=== PATIENT | male | born 1960 | race African-American/Black ===

== ENCOUNTER 2017-09-19 02:42 | Emergency (ER) | payer BC, OTHER ==
[~2017-09-19] VITALS: Ht 172.7 cm; Wt 145.1 kg
[~2017-09-19 02:42] MED LIST: BP MEDICATION PO; INSULIN REGULAR; LANTUS100 U/ML SC; MEDROL DOSEPAK4 MG PO; PREDNISONE20 M1 PO; PROAIR HFA8.5 GM INH; ZITHROMAX250 MG PO
[2017-09-19 03:53] LABS: BILIRUBIN NEGATIVE (NEGATIVE); BLOOD 1+ (NEGATIVE); CLARITY CLEAR (CLEAR); COLOR YELLOW (YELLOW); GLUCOSE 2+ (NEGATIVE); KETONE NEGATIVE (NEGATIVE); LEUKO ESTERASE NEGATIVE (NEGATIVE); NITRITE NEGATIVE (NEGATIVE); UROBILINOGEN 0.2 E.U./dl (0.2-1.0)
[2017-09-19] MEDS ORDERED: ZITHROMAX250 MG PO (04:40)
[2017-09-19] MEDS ORDERED: PREDNISONE20 M1 PO (04:40)
[2017-09-19] MEDS ORDERED: PROAIR HFA8.5 GM INH (04:51)
[2017-09-19] MEDS ORDERED: HYDROCHLOROTHIA25 M1 PO (04:51)
[2017-09-19] MEDS ORDERED: METOPROLOL TART50 M1 PO (04:51)
== END 2017-09-19 08:25 | disposition home or self-care (01) ==
LOC: ED 02:42
PROVIDERS: Emergency Medicine Emergency Medical Services
DX: J20.9 Acute bronchitis, unspecified (principal); I12.9 Hypertensive chronic kidney disease with stage 1 through stage 4 chronic kidney disease, or unspecified chronic kidney disease; E11.22 Type 2 diabetes mellitus with diabetic chronic kidney disease; N18.9 Chronic kidney disease, unspecified; Z79.4 Long term (current) use of insulin; Z79.899 Other long term (current) drug therapy

== ENCOUNTER 2018-12-22 23:57 | Inpatient (IN) | payer BC, OTHER ==
[~2018-12-22] VITALS: Ht 172.7 cm; Wt 138.1 kg
[2018-12-22 23:57] VITALS: BP 165/106
[~2018-12-22 23:57] MED LIST changes: +HYDROCHLOROTHIA25 M1 PO; +METOPROLOL TART50 M1 PO
[2018-12-23 01:00] LABS: BASO % 0.5 % (0.0-1.0); EOS # 0.1 10*3/uL (0.0-0.4); EOS % 1.4 % (1.0-4.0); HEMATOCRIT 46.6 % (42.0-52.0); HEMOGLOBIN 15.7 g/dl (14.0-18.0); LYMPH # 1.8 10*3/uL (1.3-4.4); LYMPH % 32.3 % (27.0-41.0); MEAN CELL VOLUME 83.2 fl (80.0-94.0); MEAN CORPUSCULAR HGB CONC 33.7 g/dl (33.0-37.0); MEAN PLATELET VOLUME 12.1 fl (9.6-12.3); MONO # 0.6 10*3/uL (0.1-1.0); MONO % 10.2 % (3.0-9.0); NEUT # 3.2 10*3/uL (2.3-7.9); NEUT % 55.4 % (47.0-73.0); PLATELET COUNT AUTOMATED 228 10*3/uL (130-400); RED CELL DISTRI WIDTH 13.8 % (0-14.5); WHITE BLOOD COUNT 5.7 10*3/uL (4.8-10.8)
[2018-12-23 01:17] LABS: ALBUMIN 3.1 gm/dl (3.1-4.5); CREATININE 1.51 mg/dL (0.70-1.30); POTASSIUM 4.5 mmol/L (3.5-5.1); TOTAL PROTEIN 7.8 gm/dL (6.4-8.2)
[2018-12-23 01:32] LABS: BILIRUBIN NEGATIVE (NEGATIVE); BLOOD NEGATIVE (NEGATIVE); CLARITY CLEAR (CLEAR); COLOR YELLOW (YELLOW); GLUCOSE 3+ (NEGATIVE); KETONE 1+ (NEGATIVE); LEUKO ESTERASE NEGATIVE (NEGATIVE); NITRITE NEGATIVE (NEGATIVE); PH 5.5 (5.0-9.0); SPECIFIC GRAVITY <= 1.005 (1.005-1.030); UROBILINOGEN 0.2 E.U./dl (0.2-1.0)
[2018-12-23 02:01] LABS: RBC 0-2 rbc/hpf (0-2)
[2018-12-23 02:52] LABS: ABG BASE EXCESS -0.5 mmol/L (-2.0-2.0); ABG HCO3 24.1 mmol/l (22-26); ARTERIAL BLOOD GAS PCO2 41.5 mmHg (35-45); ARTERIAL BLOOD GAS PH 7.382 (7.35-7.45); ARTERIAL BLOOD GAS PO2 78.2 mmHg (80-90)
[2018-12-23 04:00] VITALS: BP 142/92
[2018-12-23 06:46] LABS: ALBUMIN 2.8 gm/dl (3.1-4.5); ALKALINE PHOSPHATASE 89 U/L (45-117); BUN 23 mg/dl (7-24); CHLORIDE 102 mmol/L (98-107); CHOLESTEROL 207 mg/dL (<200); CREATININE 1.28 mg/dL (0.70-1.30); FREE T4 1.09 ng/dl (0.76-1.46); HDL CHOLESTEROL 28 mg/dl (40-60); POTASSIUM 3.7 mmol/L (3.5-5.1); SGOT/AST 22 IU/L (3-35); SGPT/ALT 43 U/L (12-78); SODIUM 138 mmol/L (136-145); TOTAL PROTEIN 6.8 gm/dL (6.4-8.2); TRIGLYCERIDES 532 mg/dl (<150)
[2018-12-23 12:00] VITALS: BP 135/85
[2018-12-23] MEDS ORDERED: NORVASC10 MG PO (12:17)
[2018-12-23] MEDS ORDERED: Lantus SC ×3 (13:08→14:16)
[2018-12-23] MEDS ORDERED: Humalog SQ ×3 (13:08→14:16)
[2018-12-23] MEDS ORDERED: ATORVASTATIN CA20 M1 PO ×2 (13:08→13:25)
[2018-12-23] MEDS ORDERED: Vitamin D PO ×2 (13:08→14:16)
[2018-12-23] MEDS ORDERED: 50% DEXTRO25 GM/50 M SL (13:08)
[2018-12-23] MEDS ORDERED: METOPROLOL TART50 M1 PO (13:25)
[2018-12-23] MEDS ORDERED: PRINIVIL10 MG PO (13:25)
== END 2018-12-23 15:49 | disposition home or self-care (01) | DRG 682 ==
LOC: ED 23:57 → EDHOLD 12-23 02:56 → 4E 12-23 03:12
PROVIDERS: Emergency Medicine; Family Medicine; ADMIT Emergency Medicine
DX: N17.0 Acute kidney failure with tubular necrosis (principal); E10.10 Type 1 diabetes mellitus with ketoacidosis without coma; E87.1 Hypo-osmolality and hyponatremia; E87.8 Other disorders of electrolyte and fluid balance, not elsewhere classified; E86.0 Dehydration; I10 Essential (primary) hypertension; E78.5 Hyperlipidemia, unspecified; J45.909 Unspecified asthma, uncomplicated; F17.200 Nicotine dependence, unspecified, uncomplicated; Z91.14 Patient's other noncompliance with medication regimen; Z79.51 Long term (current) use of inhaled steroids; Z79.899 Other long term (current) drug therapy

== ENCOUNTER → 2019-01-10 | Outpatient (CLI) | payer BC, OTHER ==
[~2019-01-10] MED LIST changes: +50% DEXTRO25 GM/50 M SL; +AMLODIPINE BES2.5 MG PO; +ATORVASTATIN CA20 M1 PO; +Humalog SQ; +LISINOPRIL10 M1 PO; +Lantus SC; +NORVASC10 MG PO; +PRINIVIL10 MG PO; +TOUJEO SOL300 UNIT/1 SQ; +VITAMIN D32000 UNI1 PO; +Vitamin D PO
== END | disposition home or self-care (01) ==
LOC: RESCLI 13:20
DX: I10 Essential (primary) hypertension (principal); E11.9 Type 2 diabetes mellitus without complications; E78.5 Hyperlipidemia, unspecified; E55.9 Vitamin D deficiency, unspecified; G25.81 Restless legs syndrome; Z79.4 Long term (current) use of insulin; Z76.89 Persons encountering health services in other specified circumstances; Z79.899 Other long term (current) drug therapy; Z88.8 Allergy status to other drugs, medicaments and biological substances

== ENCOUNTER 2019-05-24 16:16 | Inpatient (IN) | payer BC, OTHER ==
[~2019-05-24] VITALS: Ht 172.7 cm; Wt 129.0 kg
--- NOTE | ~2019-05-24 | EKG ---
[place], [place] ELECTROCARDIOGRAM REPORT NAME: ALEX MENENDEZ UNIT #: [id number] ROOM: [facility] DOCTOR: MAGDY DRAFT REPORT BIRTHDATE: [birth year] [facility] Test Date: 2019-05-24 Test Time: 16:49:20 Pat Name: ALEX MENENDEZ Department: ER Room: [facility] Gender: M Operations And Maintenance Manager: : 1960 Requested By: SATYA CASTAÑEDA Order Number: [id number] Reading MD: Jimmy Szymanski MD Measurements Intervals [place] Rate: 94 P: 30 [place]: 178 QRS: -74 QRSD: 105 T: 50 QT: 384 QTc: 481 Interpretive Statements Sinus rhythm Left atrial enlargement Left anterior fascicular block Left ventricular hypertrophy Anterior infarct, old Electronically Signed On 05-25-2019 9:12:03 PDT by Jimmy Szymanski MD CM:EKGRPT:ELECTROCARDIOGRAM REPORT [id number] SATYA CURRAN DRAFT REPORT SATYA CASTAÑEDA MD
[~2019-05-24 16:16] MED LIST changes: -AMLODIPINE BES2.5 MG PO; -LISINOPRIL10 M1 PO; -TOUJEO SOL300 UNIT/1 SQ; -VITAMIN D32000 UNI1 PO
[2019-05-24 16:18] VITALS: BP 150/100
[2019-05-24 16:52] LABS: BASO % 0.5 % (0.0-1.0); EOS # 0.1 10*3/uL (0.0-0.4); EOS % 0.9 % (1.0-4.0); HEMATOCRIT 46.2 % (42.0-52.0); HEMOGLOBIN 14.9 g/dl (14.0-18.0); LYMPH # 1.6 10*3/uL (1.3-4.4); LYMPH % 24.7 % (27.0-41.0); MEAN CELL VOLUME 86.7 fl (80.0-94.0); MEAN CORPUSCULAR HGB CONC 32.3 g/dl (33.0-37.0); MEAN PLATELET VOLUME 13.6 fl (9.6-12.3); MONO # 0.6 10*3/uL (0.1-1.0); NEUT # 4.3 10*3/uL (2.3-7.9); NEUT % 64.6 % (47.0-73.0); PLATELET COUNT AUTOMATED 310 10*3/uL (130-400); RED BLOOD COUNT 5.33 10*6/uL (4.50-5.90); RED CELL DISTRI WIDTH 14.3 % (0-14.5); WHITE BLOOD COUNT 6.6 10*3/uL (4.8-10.8)
[2019-05-24 17:45] VITALS: BP 138/88
--- NOTE | 2019-05-24 17:46 | NUR ---
PT STATES HE WENT TO [facility] [employer] [facility] AND HAD VANILLA SUNDAE BEFORE COMING TO THE ER.
[2019-05-24 17:49] LABS: BILIRUBIN NEGATIVE (NEGATIVE); BLOOD NEGATIVE (NEGATIVE); CLARITY CLEAR (CLEAR); COLOR YELLOW (YELLOW); GLUCOSE 3+ (NEGATIVE); KETONE 3+ (NEGATIVE); LEUKO ESTERASE NEGATIVE (NEGATIVE); NITRITE NEGATIVE (NEGATIVE); PH 5.5 (5.0-9.0); UROBILINOGEN 0.2 E.U./dl (0.2-1.0)
[2019-05-24 17:50] LABS: ACT PARTIAL THROMBO TIME 25.9 SECONDS (20.0-32.1); INTERNATIONAL NORM RATIO 0.9 (2.0-3.5)
[2019-05-24 17:54] LABS: ALBUMIN 2.9 gm/dl (3.1-4.5); ALKALINE PHOSPHATASE 95 U/L (45-117); BUN 35 mg/dl (7-24); CHLORIDE 99 mmol/L (98-107); POTASSIUM 5.2 mmol/L (3.5-5.1); SGOT/AST 13 IU/L (3-35); SGPT/ALT 34 U/L (12-78); SODIUM 136 mmol/L (136-145)
[2019-05-24 17:56] LABS: TROPONIN I < 0.015 ng/ml (<0.045)
[2019-05-24 17:58] LABS: BACTERIA TRACE; EPITHELIAL CELLS 0-2; WBC 0-2 wbc/hpf (0-5)
[2019-05-24 18:12] VITALS: BP 148/85
[2019-05-24 18:30] VITALS: BP 161/97
--- NOTE | 2019-05-24 18:30 | NUR ---
A 58, admitted to [facility]U, under the services of CINDY Rodney DO with a diagnosis of LINDA, DKA, HYPERKALEMIA. Chief complaint is weakness and frequent urination after not taking Lantus for several days. Patient arrived via stretcher from ER. Monitor applied. Initial assessment completed. Vital signs taken and recorded. CINDY RODNEY DO notified of admission to the unit. Orders received. See assessment for past medical history, medications and allergies. Patient and/or family oriented to unit. [facility] visitation policy reviewed. Clothing/patient valuable form completed. BASIL HINES
--- NOTE | 2019-05-24 18:55 | NUR ---
PATIENT'S GLUCOSE CHECK SHOWED >600 CRITICAL HI ON THE GLUCOSE MONITOR. STAT GLUCOSE REFLEX ORDERED.
[2019-05-24] MEDS ORDERED: TOUJEO SOL300 UNIT/1 SQ (18:56)
[2019-05-24 20:00] VITALS: BP 155/88
--- NOTE | 2019-05-24 22:00 | NUR ---
PATIENT VERY DEMANDING ON WHERE THE LAB CAN DO DRAWS ON HIM. MULTIPLE TRIES ATTEMPTED BY STAFF. PATIENT THEN STATED THAT WAS THE LAST TIME. EXPLAINED TO PATIENT HE WOULD HAVE LABS THROUGHOUT THE NIGHT.
[2019-05-24 22:37] LABS: CREATININE 1.67 mg/dL (0.70-1.30); POTASSIUM 5.6 mmol/L (3.5-5.1); TOTAL PROTEIN 7.4 gm/dL (6.4-8.2)
[2019-05-24 23:31] LABS: ABG BASE EXCESS -8.7 mmol/L (-2.0-2.0); ABG HCO3 16.7 mmol/l (22-26); ABG O2 SATURATION 61.7 % (95-97); ARTERIAL BLOOD GAS PH 7.297 (7.35-7.45)
[2019-05-24 23:32] LABS: ARTERIAL BLOOD GAS PO2 33.9 mmHg (80-90)
[2019-05-25] VITALS: BP 137/84
--- NOTE | 2019-05-25 00:30 | NUR ---
PATIENT ONLY ALLOWING LAB TO DO FINGER STICKS ON HIM.
[2019-05-25 00:44] LABS: ALBUMIN 3.1 gm/dl (3.1-4.5); CREATININE 1.53 mg/dL (0.70-1.30); TOTAL PROTEIN 7.1 gm/dL (6.4-8.2)
[2019-05-25 00:47] LABS: POTASSIUM 4.2 mmol/L (3.5-5.1)
[2019-05-25 03:41] LABS: CREATININE 1.7 mg/dL (0.70-1.30); TOTAL PROTEIN 7.1 gm/dL (6.4-8.2)
[2019-05-25 04:00] VITALS: BP 137/82
[2019-05-25 06:28] LABS: ALBUMIN 3.1 gm/dl (3.1-4.5); ALKALINE PHOSPHATASE 71 U/L (45-117); BUN 23 mg/dl (7-24); CHLORIDE 110 mmol/L (98-107); CHOLESTEROL 212 mg/dL (<200); CREATININE 1.35 mg/dL (0.70-1.30); PHOSPHOROUS 1.8 mg/dL (2.5-4.9); SGOT/AST 17 IU/L (3-35); SGPT/ALT 31 U/L (12-78); SODIUM 140 mmol/L (136-145); TOTAL PROTEIN 7.5 gm/dL (6.4-8.2); TRIGLYCERIDES 406 mg/dl (<150)
[2019-05-25 06:29] LABS: BASO % 0.3 % (0.0-1.0); EOS # 0.1 10*3/uL (0.0-0.4); EOS % 2.3 % (1.0-4.0); HDL CHOLESTEROL 36 mg/dl (40-60); HEMATOCRIT 45.8 % (42.0-52.0); HEMOGLOBIN 14.6 g/dl (14.0-18.0); LYMPH # 1.6 10*3/uL (1.3-4.4); LYMPH % 25.9 % (27.0-41.0); MEAN CELL VOLUME 85.9 fl (80.0-94.0); MEAN CORPUSCULAR HGB 27.4 pg (27.0-31.0); MEAN CORPUSCULAR HGB CONC 31.9 g/dl (33.0-37.0); MEAN PLATELET VOLUME 12.2 fl (9.6-12.3); MONO # 0.5 10*3/uL (0.1-1.0); MONO % 8.5 % (3.0-9.0); NEUT # 3.8 10*3/uL (2.3-7.9); NEUT % 62.7 % (47.0-73.0); PLATELET COUNT AUTOMATED 217 10*3/uL (130-400); RED BLOOD COUNT 5.33 10*6/uL (4.50-5.90); WHITE BLOOD COUNT 6.1 10*3/uL (4.8-10.8)
[2019-05-25 06:38] LABS: ACT PARTIAL THROMBO TIME 24.8 SECONDS (20.0-32.1); INTERNATIONAL NORM RATIO 0.9 (2.0-3.5)
--- NOTE | 2019-05-25 07:34 | NUR ---
Shift chart check completed.24 HR chart check completed.
[2019-05-25 08:00] VITALS: BP 133/75
--- NOTE | 2019-05-25 08:13 | NUR ---
ON ASSESSMENT PATIENT IS ALERT, ORIENTED WITH NO COMPLAINTS OTHER THAN HE IS HUNGRY AND WONDERING HOW MUCH LONGER HE'LL HAVE TO STAY IN THE HOSPITAL. INSULIN DRIP CONTINUES AT 2UNIT/HRS. D5W AT 125/HR. NO NAUSEA OR VOMITING. SEE ALL APPROPRIATE INTERVENTIONS.
[2019-05-25] MEDS ORDERED: AMLODIPINE BES2.5 MG PO (09:05)
[2019-05-25] MEDS ORDERED: METOPROLOL TART50 M1 PO (09:06)
[2019-05-25] MEDS ORDERED: VITAMIN D32000 UNI1 PO (09:07)
--- NOTE | 2019-05-25 09:39 | NUR ---
DR MERIDA HAS VISITED. D5W TURNED OFF PER HIS DIRECTION.
[2019-05-25 10:34] LABS: VITAMIN D, 25-HYDROXY 24.9 ng/mL (30-100)
--- NOTE | 2019-05-25 11:09 | NUR ---
DR HAN NOTIFIED THAT GLUCOMETER READING IS 314, INSULIN DRIP IS AT 2UNITS/HR AND D5W IS OFF. GIVING THE SCHEDULED SUBQ COVERAGE ORDERED.
--- NOTE | 2019-05-25 11:30 | NUR ---
Tripe Washer in to see patient. He is currently on his cell phone. Will follow up at a later time.
[2019-05-25 12:00] VITALS: BP 114/74
--- NOTE | 2019-05-25 12:50 | NUR ---
Nutritional Support Services Note: Per pt chart, he's concerned with his current diet and eating habits. During interview, pt stated he knows he needs to eat a more balanced diet. 24 hour recall revealed foods extremely high in Na and simple CHO. I discussed with him ADA 1800 calorie diet education materials (also providing him with a packet to take home to follow) extensively, which he comprehended. I gauged his abilities to follow this by having him explain back to me based on the information provided, what he could have for breakfast with portion sizes. He was easily able to do this but was laughing the entire time, stating he's just going to cut back on portion sizes instead of follow this. I reiterated multiple times why following this was important for stabilizing DM but he showed no interest in adhering to this whatsoever. I think he will continue to be noncomplient. Anthony Ibarra [employer] CPD Student
--- NOTE | 2019-05-25 13:11 | NUR ---
PLANT FLOOR AUTOMATION MANAGER SAW PATIENT EARLIER. SEE HER NOTE. PT UP IN CHAIR. NO DISTRESS. ANXIOUS TO GET OUT OF [facility].
--- NOTE | 2019-05-25 14:20 | NUR ---
Admission Specialist in to talk to patient. Patient states lives at home alone with . There are 30 steps in the home. Physician: [facility] Home health services: none Patient's level of ADLs: INDEPENDENT Patient has working utilities: yes DME: none Follow-up physician's appointment after d/c: he prefers to make his own follow up appt after discharged Does patient want to access PORTAL?: no Discharge plan discussed with patient. He lives at home alone. He works on the [employer] and has 2 horses in [employer]. He is independent in his ADLs and ambulation. Discussed home health care services and he denies any home needs. When medically stable he will be discharged to home. BALJINDER VIZCAINO
[2019-05-25 15:07] LABS: BUN 23 mg/dl (7-24); CHLORIDE 110 mmol/L (98-107); CREATININE 1.38 mg/dL (0.70-1.30); SODIUM 138 mmol/L (136-145)
[2019-05-25 15:10] LABS: POTASSIUM 5.2 mmol/L (3.5-5.1)
--- NOTE | 2019-05-25 15:18 | NUR ---
DR MERIDA HERE. AWARE OF LATEST LABS. ORDERS ENTERED BY HIM.
--- NOTE | 2019-05-25 15:20 | NUR ---
ANION GAP HAS INCREASED TO 13. RESTARTING IV FLUIDS.
[2019-05-25 16:00] VITALS: BP 119/77
--- NOTE | 2019-05-25 16:01 | NUR ---
BLOOD SUGAR WAS 379 ON BMP DRAWN AT 1445. INSULIN DRIP TITRATED UP TO 6 UNITS/HR FOR THAT. PT UP IN CHAIR, WATCHING INTERNET PROGRAMS ON HIS PHONE. HAS FREQUENT QUESTIONS ABOUT DKA.
--- NOTE | 2019-05-25 17:43 | NUR ---
INSULIN DRIP INCREASED TO 7 UNITS/HR FOR BSBS OF 364. PT RESTING IN BED.
--- NOTE | 2019-05-25 18:15 | NUR ---
INSULIN DRIP TO 8 UNITS/HR FOR BSBS 369. ATE HIS DINNER AND IS ANXIOUS FOR HIS BEDTIME SNACK. IV FLUIDS CONTINUE.
--- NOTE | 2019-05-25 19:00 | NUR ---
INSULIN DRIP INCREASED TO 9UNITS/HR FOR BSBS OF 409. PT SLEEPING EASILY.
--- NOTE | 2019-05-25 19:47 | NUR ---
PATIENT STATES THAT HE IS FEELING BETTER, WANTS TO EAT, SAYS THERE NOTHING ELSE TO DO HERE BUT EAT. EDUCATED ON DIET. PATIENT STILL CONCERNED WHEN HE IS GOING TO GET OUT OF HERE. PATIENT MADE AWARE OF THE Q1HR BS STICKS, AND LABS AT 2000, AND IN THE AM. PATIENT STATES ARE U SURE, BECAUSE I DONT WANT ANYMORE. PATIENT WAS LEFT WITH CALL LIGHT IN REACH.
[2019-05-25 20:01] VITALS: BP 121/81
[2019-05-25 20:07] LABS: BUN 23 mg/dl (7-24); CHLORIDE 108 mmol/L (98-107); CREATININE 1.22 mg/dL (0.70-1.30); POTASSIUM 5.6 mmol/L (3.5-5.1); SODIUM 138 mmol/L (136-145)
[2019-05-26] VITALS: BP 125/78
[2019-05-26 03:59] VITALS: BP 129/88
[2019-05-26 06:40] LABS: BUN 20 mg/dl (7-24); CHLORIDE 112 mmol/L (98-107); CREATININE 1.07 mg/dL (0.70-1.30)
[2019-05-26 06:50] LABS: SODIUM 144 mmol/L (136-145)
[2019-05-26 06:53] LABS: POTASSIUM 3.4 mmol/L (3.5-5.1)
--- NOTE | 2019-05-26 07:00 | NUR ---
NOTIFIED DR. DIXON OF PATIENTS GAP BEING CLOSED AT 8, AND THE BS READING 95 INFUSING 1 UNIT AND D5 1/2NS. PATIENT EATING BREAKFAST. ORDER TO KEEP GTT GOING FOR 2HRS. THEN PATIENT COULD BE ACHS CHECKS W/SLIDING SCALE.
[2019-05-26 08:00] VITALS: BP 118/80; BP 123/75
--- NOTE | 2019-05-26 08:33 | NUR ---
ON ASSESSMENT PT IS RESTING EASILY IN BED. IV FLUIDS D5.45NS CONTINUES AT 125/HR. INSULIN AT 1 UNIT/HR. HE HAS EATEN WELL FOR BREAKFAST AND IS ANXIOUS TO BE DISCHARGED. HIS BSBS AT [address] HAN HERE AND UPDATED ON PT. SEE ALL APPROPRIATE INTERVENTIONS.
--- NOTE | 2019-05-26 10:03 | NUR ---
DR MERIDA HAS VISITED. IV FLUIDS AND INSULIN DRIP BOTH TURNED OFF PER HIS DIRECTION.
--- NOTE | 2019-05-26 10:10 | NUR ---
PT'S K+ LEVEL THIS AM WAS 3.4. PER POLICY K-DUR 40MEQ Q2H X [address] HAN HAD ORDERED A ONE TIME DOSE OF 40MEQ THIS AM AND THAT WAS GIVEN AT 0752. 40MEQ PO NOW TO COMPLETE THE 2 DOSES. PT HAS BEEN UP TO BR FOR BM. HE'S ANXIOUS TO GO HOME.
[2019-05-26 11:36] VITALS: BP 113/82
--- NOTE | 2019-05-26 12:09 | NUR ---
DR HAN NOTIFIED THAT PT HAS FINISHED HIS LUNCH AND NO FURTHER LABS ARE ORDERED. THEY ARE ENTERING ORDERS.
[2019-05-26 12:38] LABS: BUN 18 mg/dl (7-24); CHLORIDE 108 mmol/L (98-107); CREATININE 1.04 mg/dL (0.70-1.30); SODIUM 138 mmol/L (136-145)
[2019-05-26 12:41] LABS: POTASSIUM 4.4 mmol/L (3.5-5.1)
--- NOTE | 2019-05-26 13:36 | NUR ---
DR MERIDA CALLED IN, AWARE OF REPEAT BMP DRAWN 1220. DO NOT PLAN TO DISCHARGE PATIENT AND WILL CONTINUE TO MONITOR PT'S GLUCOSE ACHS. PT ASLEEP AT THIS TIME. WILL UPDATE HIM WHEN HE'S AWAKE.
--- NOTE | 2019-05-26 15:52 | NUR ---
PT WANTING TO SHOWER AND GET OUT OF ICCU. DR HAN CALLED. OKAY FOR PT TO SHOWER.
[2019-05-26 16:00] VITALS: BP 142/98
--- NOTE | 2019-05-26 16:26 | NUR ---
PT IN SHOWER.
[2019-05-26 20:00] VITALS: BP 159/96
[2019-05-26 20:06] LABS: BUN 19 mg/dl (7-24); CHLORIDE 106 mmol/L (98-107); POTASSIUM 4.2 mmol/L (3.5-5.1); SODIUM 139 mmol/L (136-145)
[2019-05-27] VITALS: BP 131/84
[2019-05-27 04:00] VITALS: BP 139/88
[2019-05-27 06:43] LABS: BUN 15 mg/dl (7-24); CHLORIDE 111 mmol/L (98-107); CREATININE 0.89 mg/dL (0.70-1.30); POTASSIUM 3.8 mmol/L (3.5-5.1); SODIUM 142 mmol/L (136-145)
--- NOTE | 2019-05-27 07:29 | NUR ---
Shift chart check completed.24 HR chart check completed.
[2019-05-27 08:00] VITALS: BP 120/80
--- NOTE | 2019-05-27 08:31 | NUR ---
ON ASSESSMENT PATIENT EATING HIS BREAKFAST, ANXIOUS TO GO HOME. NO C/O PAIN OR SHORTNESS OF BREATH.
[2019-05-27] MEDS ORDERED: LISINOPRIL10 M1 PO (09:38)
--- NOTE | 2019-05-27 09:40 | NUR ---
DR MERIDA IN. PT TO BE DISCHARGED TO HOME.
--- NOTE | 2019-05-27 10:21 | NUR ---
DISCHARGE INSTRUCTIONS TO PT. 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 HE'S BEEN PROVIDED WITH [facility]. HE INTENDS TO EAT LUNCH BEFORE LEAVING.
--- NOTE | 2019-05-27 11:45 | NUR ---
DISCHARGED, AMBULATORY, WITH ALL OF HIS BELONGINGS AND HIS DISCHARGE INSTRUCTIONS.
== END 2019-05-27 11:45 | disposition home or self-care (01) | DRG 637 ==
LOC: ED 16:16 → ICCU 18:00 → EDHOLD 18:00 → ICCU 18:17
PROVIDERS: Emergency Medicine; Family Medicine; Internal Medicine; Student in an Organized Health Care Education/Training Program; ADMIT Internal Medicine
DX: E10.10 Type 1 diabetes mellitus with ketoacidosis without coma (principal); N17.0 Acute kidney failure with tubular necrosis; R65.10 Systemic inflammatory response syndrome (SIRS) of non-infectious origin without acute organ dysfunction; E44.0 Moderate protein-calorie malnutrition; E87.1 Hypo-osmolality and hyponatremia; Z68.41 Body mass index [BMI] 40.0-44.9, adult; I10 Essential (primary) hypertension; E78.5 Hyperlipidemia, unspecified; E66.01 Morbid (severe) obesity due to excess calories; E83.41 Hypermagnesemia; E86.0 Dehydration; E87.5 Hyperkalemia; Z91.19 Patient's noncompliance with other medical treatment and regimen; Z82.49 Family history of ischemic heart disease and other diseases of the circulatory system; Z83.3 Family history of diabetes mellitus; Z79.899 Other long term (current) drug therapy

== ENCOUNTER 2019-09-01 18:12 | Inpatient (IN) | payer BC, OTHER ==
[~2019-09-01] VITALS: Ht 172.7 cm; Wt 137.6 kg
[~2019-09-01 18:12] MED LIST changes: +AMLODIPINE BES2.5 MG PO; +LISINOPRIL10 M1 PO; +TOUJEO SOL300 UNIT/1 SQ; +VITAMIN D32000 UNI1 PO
[2019-09-01 18:13] VITALS: BP 214/112
[2019-09-01 18:36] VITALS: BP 208/120
[2019-09-01 19:03] VITALS: BP 184/102
[2019-09-01 19:59] LABS: BASO % 0.7 % (0.0-1.0); EOS # 0.2 10*3/uL (0.0-0.4); EOS % 3.9 % (1.0-4.0); HEMATOCRIT 44.1 % (42.0-52.0); LYMPH # 1.8 10*3/uL (1.3-4.4); LYMPH % 31.3 % (27.0-41.0); MEAN CELL VOLUME 85.1 fl (80.0-94.0); MEAN CORPUSCULAR HGB CONC 31.7 g/dl (33.0-37.0); MONO # 0.5 10*3/uL (0.1-1.0); MONO % 8.8 % (3.0-9.0); NEUT # 3.2 10*3/uL (2.3-7.9); PLATELET COUNT AUTOMATED 249 10*3/uL (130-400); RED BLOOD COUNT 5.18 10*6/uL (4.50-5.90); RED CELL DISTRI WIDTH 14.6 % (0-14.5); WHITE BLOOD COUNT 5.9 10*3/uL (4.8-10.8)
[2019-09-01 20:13] LABS: INTERNATIONAL NORM RATIO 0.9 (2.0-3.5)
[2019-09-01 20:14] VITALS: BP 173/89
[2019-09-01 20:20] LABS: ALBUMIN 3.5 gm/dl (3.1-4.5); ALKALINE PHOSPHATASE 52 U/L (45-117); BUN 19 mg/dl (7-24); CHLORIDE 106 mmol/L (98-107); CREATININE 0.99 mg/dL (0.70-1.30); POTASSIUM 3.8 mmol/L (3.5-5.1); SGOT/AST 17 IU/L (3-35); SGPT/ALT 33 U/L (12-78); SODIUM 139 mmol/L (136-145); TOTAL PROTEIN 7.6 gm/dL (6.4-8.2)
[2019-09-01 20:23] LABS: TROPONIN I < 0.015 ng/ml (<0.045)
[2019-09-01 22:00] VITALS: BP 170/100
--- NOTE | 2019-09-01 22:00 | NUR ---
A 59, admitted to , under the services of CINDY Rodney DO with a diagnosis of HYPERTENSIVE EMERGENCY. Chief complaint is ELEVATED BLOOD PRESSURE. Patient arrived via stretcher from ER. Monitor applied. Initial assessment completed. Vital signs taken and recorded. CINDY RODNEY DO notified of admission to the unit. Orders received. See assessment for past medical history, medications and allergies. Patient and/or family oriented to unit. [facility]LO[facility] visitation policy reviewed. Clothing/patient valuable form completed. UNABLE TO RECONCILE MEDICATIONS PATIENT DID NOT KNOW FOR SURE WHAT MEDICATIONS HE WAS TAKING, BP 170/[address] SERRANO, NO NEW ORDERS AT THIS TIME. ROMA CARLIN
[2019-09-02] VITALS (12 sets, daily range): BP systolic 150–202; BP diastolic 80–120
[2019-09-02 01:53] LABS: BASO % 0.3 % (0.0-1.0); EOS # 0.2 10*3/uL (0.0-0.4); EOS % 3.1 % (1.0-4.0); HEMATOCRIT 42.9 % (42.0-52.0); HEMOGLOBIN 13.5 g/dl (14.0-18.0); LYMPH # 1.5 10*3/uL (1.3-4.4); LYMPH % 24.1 % (27.0-41.0); MEAN CELL VOLUME 85.3 fl (80.0-94.0); MEAN CORPUSCULAR HGB 26.8 pg (27.0-31.0); MEAN CORPUSCULAR HGB CONC 31.5 g/dl (33.0-37.0); MEAN PLATELET VOLUME 10.8 fl (9.6-12.3); MONO # 0.5 10*3/uL (0.1-1.0); MONO % 7.7 % (3.0-9.0); NEUT # 3.9 10*3/uL (2.3-7.9); NEUT % 64.6 % (47.0-73.0); PLATELET COUNT AUTOMATED 237 10*3/uL (130-400); RED BLOOD COUNT 5.03 10*6/uL (4.50-5.90); RED CELL DISTRI WIDTH 14.8 % (0-14.5); WHITE BLOOD COUNT 6.1 10*3/uL (4.8-10.8)
--- NOTE | 2019-09-02 02:03 | NUR ---
RECHECKED PATIENTS BP PER HIS REQUESTED, HE DENIES ANY SYMPTOMS, BP 170/90, HR 79 WITH 7-8 PVC'S, DR. SERRANO NOTIFIED.
[2019-09-02 02:10] LABS: ALBUMIN 3.1 gm/dl (3.1-4.5); ALKALINE PHOSPHATASE 52 U/L (45-117); BUN 19 mg/dl (7-24); CHLORIDE 106 mmol/L (98-107); CREATININE 1.04 mg/dL (0.70-1.30); PHOSPHOROUS 3.1 mg/dL (2.5-4.9); POTASSIUM 3.5 mmol/L (3.5-5.1); SGOT/AST 13 IU/L (3-35); SGPT/ALT 29 U/L (12-78); SODIUM 139 mmol/L (136-145); TOTAL PROTEIN 6.8 gm/dL (6.4-8.2)
--- NOTE | 2019-09-02 04:30 | NUR ---
Patient sleeping. Respirations relaxed and easy. Siderails up x 2. [place]ocks on, bed in lowest position, call light within reach. ROMA CARLIN
--- NOTE | 2019-09-02 12:33 | NUR ---
DR PATEL NOTIFIED OF MANUAL BP OF 202/120.
--- NOTE | 2019-09-02 13:48 | NUR ---
APRESOLINE GIVEN PER DR ORDER FOR BLOOD PRESSURE OF 202/120. WILL ASSESS EFFECTIVENESS.
--- NOTE | 2019-09-02 15:04 | NUR ---
APRESOLINE EFFECTIVE. PATIENTS BP IS 156/94. WILL CONTINUE TO MONITOR.
--- NOTE | 2019-09-02 15:28 | NUR ---
24 HR chart check completed.
--- NOTE | 2019-09-02 16:21 | NUR ---
PATIENT UP AND WALKING THE HALLS AT THIS TIME. STATED HE WAS FEELING BETTER SINCE HIS BLOOD PRESSURE LOWERED.
--- NOTE | 2019-09-02 20:00 | NUR ---
PRN APRESOLINE GIVEN FOR BP 173/82 PER ORDERS. WILL CHECK EFFECTIVENESS. CALL LIGHT WITHIN REACH. WILL CONTINUE TO MONITOR.
--- NOTE | 2019-09-02 22:04 | NUR ---
BP 166/89. SCHEDULED PO APRESALINE GIVEN PER ORDERS. WILL RECHECK. CALL LIGHT WITHIN REACH.
--- NOTE | 2019-09-02 23:00 | NUR ---
DR. IZQUIERDO NOTIFIED PTS BP 186/[address] IZQUIERDO PT SAYS HE HAS SLEEP APNEA AND USUALLY WEARS CPAP AT NIGHT. DR. IZQUIERDO TO LOOK AT CHART AND PUT ORDERS IN. WILL CONTINUE TO MONITOR. CALL LIGHT WITHIN REACH.
[2019-09-03] VITALS: BP 156/85
--- NOTE | 2019-09-03 | NUR ---
Pt placed on BiPap 12/6 and FiO2 21%. No comps. Alarms on and audible.
[2019-09-03 01:30] VITALS: BP 168/92
--- NOTE | 2019-09-03 01:30 | NUR ---
PT EDUCATED ON NEED FOR PRN APRESOLINE FOR BP OF 168/92. PT DOES NOT WANT PRN IV APRESOLINE AT THIS TIME. PT STATES "I CAN TELL WHEN MY BP IS HIGH AND I FEEL OK RIGHT NOW. I WAS JUST FRUSTRATED ABOUT MY CPAP AND I THINK IT WILL GO DOWN WITH THIS." WILL RECHECK PTS BP. CALL LIGHT WITHIN REACH.
--- NOTE | 2019-09-03 01:35 | NUR ---
NOTIFIED OF BP OF 168/92. NO NEW ORDERS RECEIVED.
[2019-09-03 02:15] VITALS: BP 158/84
--- NOTE | 2019-09-03 03:55 | NUR ---
PT TOOK BIPAP OFF. WILL NOTIFY REPIRATORY.
[2019-09-03 04:50] VITALS: BP 174/102
--- NOTE | 2019-09-03 05:00 | NUR ---
BP 174/102. GAVE THE SCHEDULED PO APRESOLINE AT THIS TIME. WILL RECHECK. CALL LIGHT WITHIN REACH.
--- NOTE | 2019-09-03 05:20 | NUR ---
NOTIFIED OF BP OF 174/102. NO NEW ORDERS RECEIVED. WILL RECHECK PRESSURE.
[2019-09-03 06:00] VITALS: BP 172/88
--- NOTE | 2019-09-03 06:13 | NUR ---
BP 172/88. MEDICATED WITH PRN IV APRESOLINE. WILL RECHECK. CALL LIGHT WITHIN REACH.
--- NOTE | 2019-09-03 07:15 | NUR ---
ARRIVED ON SHIFT, PATIENT SITTING UP IN CHAIR, BEDSIDE REPORT RECEIVED, EHITE BOARD UPDATED, PATIENT STATES HE IS LEAVING TODAY, HIS BLOOD PRESSURES HAVE NOT STABALIZED AND HE FEELS HE NEEDS TO SEE THE SPECIALIST, HE ALSO REFUSED LABS. REMINDED PATIENT HE HAS ONLY BEEN HERE ABOUT 36 HOURS, AND THESE THINGS TAKE TIME. ADVISED I WOULD LET KNOW HIS CONCERNS.
--- NOTE | 2019-09-03 07:29 | NUR ---
INFORMED PT REFUSED MORNING LABS. PT STATES "I AM GOING HOME TODAY NO MATTER WHAT SO THERE IS NO NEEDS FOR MORE BLOOD TO BE TAKEN."
--- NOTE | 2019-09-03 08:05 | NUR ---
CALL PLACED TO HOSPITALIST LINE, SPOKE WITH DR. DUONG ADVISED OF PATIENTS REFUSAL OF LABS AND PATIENT STATEMENT HE WAS LEAVING, REVIEWED PATIENTS BLOOD PRESSURE, ALSO ADVISED HE MED REC WAS NOT COMPLETED PHARMACY WAS NOT OPEN AND PATIENT DID NOT KNOW HIS MEDICATIONS. SHE VERSED SHE WILL REVIEW CHART AND CALL ME BACK.
--- NOTE | 2019-09-03 08:15 | NUR ---
RECEIVED CALL FROM DR. DUONG, SHE ASKED THAT I GIVE PATIENTS AM BP MEDICATIONS NOW.
--- NOTE | 2019-09-03 08:15 | NUR ---
Shift chart check completed.
[2019-09-03] MEDS ORDERED: HYDR25T PO (08:32)
[2019-09-03] MEDS ORDERED: HYDRALAZINE HYD50 MG PO (08:32)
[2019-09-03] MEDS ORDERED: AMLODIPINE BESYL5 MG PO (08:32)
--- NOTE | 2019-09-03 09:12 | NUR ---
Discharge instructions reviewed with patient/family. Patient receptive and verbalizes understanding. Refused Follow-up care, written instructions and perscriptions, reviewed and given to patient, iv removed, telemetry accounted for, patient refused w/c for discharge. ROMA CARLIN
== END 2019-09-03 09:17 | disposition home or self-care (01) | DRG 305 ==
LOC: ED 18:12 → EDHOLD 20:43 → 5E 21:15
PROVIDERS: Emergency Medicine; Internal Medicine; ADMIT Internal Medicine
PROC: 5A09357 Assistance with Respiratory Ventilation, Less than 24 Consecutive Hours, Continuous Positive Airway Pressure (ICD-10-PCS; principal; 2019-09-03)
DX: I16.1 Hypertensive emergency (principal); E44.1 Mild protein-calorie malnutrition; Z68.42 Body mass index [BMI] 45.0-49.9, adult; E66.01 Morbid (severe) obesity due to excess calories; E78.5 Hyperlipidemia, unspecified; I10 Essential (primary) hypertension; E11.65 Type 2 diabetes mellitus with hyperglycemia; E55.9 Vitamin D deficiency, unspecified; Z79.899 Other long term (current) drug therapy; Z79.4 Long term (current) use of insulin; Z82.49 Family history of ischemic heart disease and other diseases of the circulatory system; Z83.3 Family history of diabetes mellitus; Z91.19 Patient's noncompliance with other medical treatment and regimen

== ENCOUNTER 2020-02-10 17:10 | Inpatient (IN) | payer BC, OTHER ==
[~2020-02-10] VITALS: Ht 172.7 cm; Wt 130.7 kg
[~2020-02-10 17:10] MED LIST changes: +AMLODIPINE BESYL5 MG PO; +HYDR25T PO; +HYDRALAZINE HYD50 MG PO
[2020-02-10 17:20] VITALS: BP 118/68
[2020-02-10 18:12] LABS: BASO % 0.2 % (0.0-1.0); EOS # 0.1 10*3/uL (0.0-0.4); EOS % 0.9 % (1.0-4.0); HEMATOCRIT 43.6 % (42.0-52.0); HEMOGLOBIN 13.7 g/dl (14.0-18.0); LYMPH # 0.9 10*3/uL (1.3-4.4); LYMPH % 7.3 % (27.0-41.0); MEAN CELL VOLUME 86.9 fl (80.0-94.0); MEAN CORPUSCULAR HGB 27.3 pg (27.0-31.0); MEAN CORPUSCULAR HGB CONC 31.4 g/dl (33.0-37.0); MEAN PLATELET VOLUME 11.7 fl (9.6-12.3); MONO # 0.8 10*3/uL (0.1-1.0); MONO % 6.7 % (3.0-9.0); NEUT # 9.9 10*3/uL (2.3-7.9); NEUT % 84.6 % (47.0-73.0); PLATELET COUNT AUTOMATED 289 10*3/uL (130-400); RED BLOOD COUNT 5.02 10*6/uL (4.50-5.90); RED CELL DISTRI WIDTH 14.1 % (0-14.5); WHITE BLOOD COUNT 11.7 10*3/uL (4.8-10.8)
[2020-02-10 18:22] LABS: ALBUMIN 2.6 gm/dl (3.1-4.5); CREATININE 1.71 mg/dL (0.70-1.30); POTASSIUM 4.5 mmol/L (3.5-5.1)
[2020-02-10 19:11] LABS: BILIRUBIN NEGATIVE (NEGATIVE); BLOOD TRACE-INTACT (NEGATIVE); CLARITY CLEAR (CLEAR); COLOR YELLOW (YELLOW); GLUCOSE 3+ (NEGATIVE); KETONE 3+ (NEGATIVE); NITRITE NEGATIVE (NEGATIVE); UROBILINOGEN 0.2 E.U./dl (0.2-1.0)
[2020-02-10 19:12] LABS: LEUKO ESTERASE NEGATIVE (NEGATIVE)
[2020-02-10 19:18] LABS: RBC 0-2 rbc/hpf (0-2); WBC 0-2 wbc/hpf (0-5)
[2020-02-10 21:45] VITALS: BP 139/84
[2020-02-10] MEDS ORDERED: LISINOPRIL20 MG PO (22:52)
[2020-02-10] MEDS ORDERED: NIFEDIPINE ER30 M1 PO (22:54)
[2020-02-11 01:00] LABS: CREATININE 1.47 mg/dL (0.70-1.30); POTASSIUM 3.7 mmol/L (3.5-5.1)
[2020-02-11 04:00] VITALS: BP 101/54
[2020-02-11 04:40] LABS: CREATININE 1.85 mg/dL (0.70-1.30); POTASSIUM 3.9 mmol/L (3.5-5.1)
[2020-02-11 08:00] VITALS: BP 117/70
[2020-02-11] MEDS ORDERED: TOUJEO SOL300 UNIT/1 SC (08:49)
[2020-02-11] MEDS ORDERED: HUMALOG100 UNIT/2 SC (08:51)
[2020-02-11 12:00] VITALS: BP 103/70
[2020-02-11 16:00] VITALS: BP 109/73
[2020-02-11 17:22] LABS: CREATININE 1.47 mg/dL (0.70-1.30); POTASSIUM 4.7 mmol/L (3.5-5.1)
[2020-02-11 20:00] VITALS: BP 142/77
[2020-02-11 21:27] LABS: CREATININE 1.58 mg/dL (0.70-1.30); POTASSIUM 4.2 mmol/L (3.5-5.1)
[2020-02-11 22:50] LABS: BUN 27 mg/dl (7-24); CHLORIDE 107 mmol/L (98-107); CREATININE 1.44 mg/dL (0.70-1.30); SODIUM 133 mmol/L (136-145)
[2020-02-11 22:53] LABS: POTASSIUM 5.2 mmol/L (3.5-5.1)
[2020-02-12] VITALS (10 sets, daily range): BP systolic 129–166; BP diastolic 60–102
[2020-02-12 00:58] LABS: BUN 24 mg/dl (7-24); CHLORIDE 109 mmol/L (98-107); CREATININE 1.32 mg/dL (0.70-1.30); SODIUM 137 mmol/L (136-145)
[2020-02-12 01:03] LABS: POTASSIUM 3.6 mmol/L (3.5-5.1)
[2020-02-12 05:53] LABS: BUN 20 mg/dl (7-24); CHLORIDE 111 mmol/L (98-107); CREATININE 1.15 mg/dL (0.70-1.30); POTASSIUM 3.5 mmol/L (3.5-5.1); SODIUM 139 mmol/L (136-145)
[2020-02-12 06:08] LABS: BASO % 0.2 % (0.0-1.0); EOS # 0.1 10*3/uL (0.0-0.4); HEMATOCRIT 35.8 % (42.0-52.0); HEMOGLOBIN 11.3 g/dl (14.0-18.0); LYMPH % 8.4 % (27.0-41.0); MEAN CELL VOLUME 85.6 fl (80.0-94.0); MEAN CORPUSCULAR HGB CONC 31.6 g/dl (33.0-37.0); MEAN PLATELET VOLUME 11.6 fl (9.6-12.3); MONO # 1.1 10*3/uL (0.1-1.0); MONO % 8.7 % (3.0-9.0); NEUT # 9.8 10*3/uL (2.3-7.9); NEUT % 80.6 % (47.0-73.0); PLATELET COUNT AUTOMATED 249 10*3/uL (130-400); RED BLOOD COUNT 4.18 10*6/uL (4.50-5.90); RED CELL DISTRI WIDTH 14.2 % (0-14.5); WHITE BLOOD COUNT 12.2 10*3/uL (4.8-10.8)
[2020-02-12 12:51] LABS: BUN 17 mg/dl (7-24); CHLORIDE 111 mmol/L (98-107); CREATININE 1.14 mg/dL (0.70-1.30); SODIUM 140 mmol/L (136-145)
[2020-02-12 13:01] LABS: POTASSIUM 4.6 mmol/L (3.5-5.1)
[2020-02-13] VITALS: BP 145/79
[2020-02-13 04:00] VITALS: BP 158/85
[2020-02-13 08:00] VITALS: BP 148/82
[2020-02-13 08:07] LABS: BASO % 0.3 % (0.0-1.0); EOS # 0.2 10*3/uL (0.0-0.4); EOS % 2.1 % (1.0-4.0); HEMATOCRIT 37.4 % (42.0-52.0); HEMOGLOBIN 11.6 g/dl (14.0-18.0); LYMPH # 1.4 10*3/uL (1.3-4.4); LYMPH % 12.2 % (27.0-41.0); MEAN CELL VOLUME 87.4 fl (80.0-94.0); MEAN CORPUSCULAR HGB 27.1 pg (27.0-31.0); MEAN PLATELET VOLUME 11.4 fl (9.6-12.3); MONO # 0.8 10*3/uL (0.1-1.0); MONO % 7.3 % (3.0-9.0); NEUT # 8.7 10*3/uL (2.3-7.9); PLATELET COUNT AUTOMATED 263 10*3/uL (130-400); RED BLOOD COUNT 4.28 10*6/uL (4.50-5.90); RED CELL DISTRI WIDTH 14.4 % (0-14.5); WHITE BLOOD COUNT 11.3 10*3/uL (4.8-10.8)
[2020-02-13 08:19] LABS: BUN 12 mg/dl (7-24); CHLORIDE 106 mmol/L (98-107); CREATININE 1.18 mg/dL (0.70-1.30); POTASSIUM 4.1 mmol/L (3.5-5.1); SODIUM 136 mmol/L (136-145)
[2020-02-13 12:00] VITALS: BP 147/86
[2020-02-13 16:00] VITALS: BP 148/98; BP 151/97
[2020-02-13 20:00] VITALS: BP 156/90
[2020-02-14] VITALS: BP 148/73
[2020-02-14 06:44] LABS: BASO % 0.4 % (0.0-1.0); EOS # 0.3 10*3/uL (0.0-0.4); EOS % 3.4 % (1.0-4.0); HEMATOCRIT 34.5 % (42.0-52.0); HEMOGLOBIN 10.8 g/dl (14.0-18.0); LYMPH # 1.3 10*3/uL (1.3-4.4); LYMPH % 15.8 % (27.0-41.0); MEAN CELL VOLUME 87.3 fl (80.0-94.0); MEAN CORPUSCULAR HGB 27.3 pg (27.0-31.0); MEAN CORPUSCULAR HGB CONC 31.3 g/dl (33.0-37.0); MEAN PLATELET VOLUME 11.2 fl (9.6-12.3); MONO # 0.6 10*3/uL (0.1-1.0); MONO % 7.9 % (3.0-9.0); NEUT # 5.7 10*3/uL (2.3-7.9); NEUT % 71.1 % (47.0-73.0); PLATELET COUNT AUTOMATED 267 10*3/uL (130-400); RED BLOOD COUNT 3.95 10*6/uL (4.50-5.90); RED CELL DISTRI WIDTH 14.1 % (0-14.5)
[2020-02-14 07:07] LABS: CHLORIDE 107 mmol/L (98-107); SODIUM 138 mmol/L (136-145)
[2020-02-14 07:12] LABS: BUN 10 mg/dl (7-24); CREATININE 0.98 mg/dL (0.70-1.30)
[2020-02-14 08:00] VITALS: BP 153/89
[2020-02-14 12:00] VITALS: BP 150/82
[2020-02-14 16:00] VITALS: BP 140/82
[2020-02-14 20:00] VITALS: BP 153/82
[2020-02-15] VITALS: BP 163/92
[2020-02-15 01:00] VITALS: BP 154/80
[2020-02-15 06:39] LABS: BUN 9 mg/dl (7-24); CHLORIDE 106 mmol/L (98-107); CREATININE 0.96 mg/dL (0.70-1.30); POTASSIUM 3.9 mmol/L (3.5-5.1); SODIUM 138 mmol/L (136-145)
[2020-02-15 08:00] VITALS: BP 149/72
[2020-02-15] MEDS ORDERED: SEPTDS PO (13:55)
== END 2020-02-15 17:02 | disposition home or self-care (01) | DRG 871 ==
LOC: ED 17:10 → ICCU 18:47 → 4E 18:47 → EDHOLD 18:47 → ICCU 19:51 → 4E 02-13 10:27
PROVIDERS: Internal Medicine; Nurse Practitioner Family; Student in an Organized Health Care Education/Training Program; ADMIT Family Medicine
PROC: 0H9BXZZ Drainage of Right Upper Arm Skin, External Approach (ICD-10-PCS; principal; 2020-02-12)
DX: A41.9 Sepsis, unspecified organism (principal); E11.10 Type 2 diabetes mellitus with ketoacidosis without coma; N17.0 Acute kidney failure with tubular necrosis; E43 Unspecified severe protein-calorie malnutrition; E87.1 Hypo-osmolality and hyponatremia; L02.413 Cutaneous abscess of right upper limb; Z68.41 Body mass index [BMI] 40.0-44.9, adult; E87.8 Other disorders of electrolyte and fluid balance, not elsewhere classified; I10 Essential (primary) hypertension; E78.5 Hyperlipidemia, unspecified; E66.01 Morbid (severe) obesity due to excess calories; Z79.4 Long term (current) use of insulin; Z82.49 Family history of ischemic heart disease and other diseases of the circulatory system; Z83.3 Family history of diabetes mellitus

== ENCOUNTER 2020-07-08 20:31 | Emergency (ER) | payer SELFPAY ==
[~2020-07-08] VITALS: Ht 172.7 cm; Wt 135.6 kg
[~2020-07-08 20:31] MED LIST changes: +HUMALOG100 UNIT/2 SC; +LISINOPRIL20 MG PO; +NIFEDIPINE ER30 M1 PO; +SEPTDS PO; +TOUJEO SOL300 UNIT/1 SC
== END 2020-07-08 23:57 | disposition home or self-care (01) ==
LOC: ED 20:31
DX: I10 Essential (primary) hypertension (principal); Z79.899 Other long term (current) drug therapy; Z79.4 Long term (current) use of insulin; Z53.29 Procedure and treatment not carried out because of patient's decision for other reasons